=== PATIENT | female | born 1965 | race Caucasian/White ===

== ENCOUNTER 2022-04-20 05:38 | Day surgery (SDC) | payer BC ==
[~2022-04-20] VITALS: Ht 167.6 cm; Wt 79.6 kg
--- NOTE | 2022-04-20 12:31 | NUR ---
04/20/22 Farida1 Eleni Zuniga 1224-PATIENT ARRIVED TO PACU ON 6L MASK NONAROUSABLE ORAL AIRWAY IN PLACE RR EVEN. IVF INFUSING. SR. LAP SITES TO ABDOMEN CDI ICE APPLIED. 1226-PATIENT AROUSING TO VERBAL STIMULI ORAL AIRWAY REMOVED. MOVING HANDS. ORIENTED TO PACU. PATIENT EASILY DOZES BACK TO SLEEP. 6L MASK RR EVEN
--- NOTE | 2022-04-20 12:35 | CONS ---
[facility] [address], [place] [address] Signed DATE OF CONSULTATION: 04/20/2022 CHIEF COMPLAINT: Right upper quadrant abdominal pain. HISTORY OF PRESENT ILLNESS: Sue is a 57-year-old female, who has had some sense of right upper quadrant pain for at least a year. She has had a couple of really bad attacks. One started yesterday that radiated through to her back. She had nausea and vomiting. She came to the emergency room for evaluation. Her white count was a little elevated, but her liver function tests were fine. COVID was negative. Beta-hCG negative. CT scan was done and she had some gallbladder wall thickening and edema of about 8 mm. There appears to be a small stone in the gallbladder. Common bile duct is unremarkable. I have been asked to see her as a general surgeon on-call. In the meantime, she has received Rocephin and Flagyl. PAST MEDICAL HISTORY: None. PAST SURGICAL HISTORY: . SOCIAL HISTORY: She quit smoking 10 years ago. She likes a couple of beers every evening. She is now single and has a son Ortega at [phone] and her mother is Leonarda at [phone]. 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 She does drive. She prefers the [facility] pharmacy. Dr. Esqueda is her primary care provider. FAMILY HISTORY: Dad had a stroke and [place] and CABG. REVIEW OF SYSTEMS: She had 10 systems reviewed and there were no new findings. ALLERGIES: None. MEDICATIONS: None. PHYSICAL EXAMINATION: VITAL SIGNS: Her blood pressure is 153/84, heart rate is 85, respiratory rate is 19, temperature is 98.2. She is 99% on room air. She is 5 feet 6 inches tall at 79 kg with Electronically Signed By: ARTIE VAZQUEZ MD 04/20/22 1235 PATIENT NAME: SUE RHODES CONSULTATION DATE OF : 69 REPORT #: [id number] PHYSICIAN: ARTIE VAZQUEZ MD PCP: PARESH ESQUEDA DO REPORT IS CONFIDENTIAL AND NOT TO BE RELEASED WITHOUT AUTHORIZATION [facility] [address], [place] [address] Signed a body mass index of 28. GENERAL: Sue is a 57-year-old female lying supine semi-recumbent in her ER bed. She does not appear systemically ill or toxic. She is not jaundiced. LUNGS: Clear to auscultation bilaterally. HEART: Regular rate and rhythm without murmurs. ABDOMEN: Obese, but soft, although tender in the right upper quadrant. LABORATORY DATA: Her white blood cell count is 13.5, hemoglobin 13. Electrolytes are unremarkable. UA is negative. COVID is negative. Total bilirubin is 1.0, AST 18, ALT 31, alkaline phosphatase is 73. The lipase is 102. The beta HCG is negative. RADIOGRAPHIC STUDIES: CT scan of the abdomen and pelvis is reviewed and she does have gallbladder wall thickening and edema and a small stone but unremarkable common bile duct. ASSESSMENT AND PLAN: Sue is a 57-year-old female who presents with cholecystitis and cholelithiasis. She has been given IV fluids and antibiotics and pain control. We are going to be taking her over to the operating room here shortly. I have reviewed the above findings with her in detail. We have reviewed the location and function of the gallbladder. We have reviewed laparoscopic versus open cholecystectomy. I reviewed the expected intraop and postop course. There is risk to surgery including, but not limited to bleeding, infection, scarring, change in contour of the skin, damage to bowel, damage to main bile duct, incisional hernias and other unforeseen comorbidities. She has expressed understanding and would like to proceed. Artie Vazquez MD ALB/MODL /[id number] cc: MD Paresh Nathan DO Copies: ARTIE VAZQUEZ MD Electronically Signed By: ARTIE VAZQUEZ MD 04/20/22 1235 PATIENT NAME: SUE RHODES CONSULTATION DATE OF : 69 REPORT #: [id number] PHYSICIAN: ARTIE VAZQUEZ MD PCP: PARESH ESQUEDA DO REPORT IS CONFIDENTIAL AND NOT TO BE RELEASED WITHOUT AUTHORIZATION [address] [place] [address] Signed PARESH ESQUEDA DO ~ Electronically Signed By: ARTIE VAZQUEZ MD 04/20/22 1235 PATIENT NAME: SUE RHODES CONSULTATION DATE OF : 69 REPORT #: [id number] PHYSICIAN: ARTIE VAZQUEZ MD PCP: PARESH ESQUEDA DO REPORT IS CONFIDENTIAL AND NOT TO BE RELEASED WITHOUT AUTHORIZATION
--- NOTE | 2022-04-20 13:15 | NUR ---
PT TRANSPORTED TO DAY SURGERY VIA STRETCHER. PT AWAKE AND ORIENTED BUT DROWSY. PT REPORTS PAIN 6/10 IN STOMACH AND "TINY BIT" OF NAUSEA. PT'S MOTHER AT BEDSIDE. ICE PACK ON PT'S ABDOMEN. CALL LIGHT WITHIN REACH. ICE WATER AT BEDSIDE.
--- NOTE | 2022-04-20 13:29 | NUR ---
JELLO-O AND CRACKERS AT BEDSIDE. CALL LIGHT WITHIN REACH. PT INFORMED TO CALL NURSES IF NAUSEOUS.
--- NOTE | 2022-04-20 13:52 | NUR ---
PT GIVEN WARM BLANKET AND MORE CRACKERS. CALL LIGHT WITHIN REACH.
--- NOTE | 2022-04-20 14:02 | NUR ---
PT MAINTAINING 100% O2 LEVELS ON 2 L VIA NC. PT O2 TURNED OFF AND PUT ON RA. PT MAINTAINING O2 LEVELS ABOVE 96%. PT WEARING O2 PROBE ON RIGHT FINGER. PT STATES PAIN IS STILL 6/10 AFTER RECEIVING PO PAIN MEDS. PT COUGHING AND DEEP BREATHING. PT EATING CRACKERS AND JELLO-O. WATER AT BEDSIDE. CALL LIGHT WITHIN REACH.
--- NOTE | 2022-04-20 15:15 | NUR ---
WALKED PT DOWN LONG HALLWAY. DID WELL.
--- NOTE | 2022-04-20 16:53 | NUR ---
1545 STATES MOTHER HERE AND READY TO GO HOME.
--- NOTE | 2022-04-21 06:59 | OR ---
[facility] [address], [place] [address] Signed DATE OF OPERATION: 04/20/2022 SURGEON: Artie Vazquez MD PREOPERATIVE DIAGNOSIS: Acute on chronic cholecystitis and cholelithiasis. POSTOPERATIVE DIAGNOSIS: Acute on chronic cholecystitis and cholelithiasis. PROCEDURE: Laparoscopic cholecystectomy with intraoperative cholangiogram. ESTIMATED BLOOD LOSS: None. FINDINGS: Sue indeed had a thickened, edematous, distended gallbladder with two stones in the gallbladder. One stone was in the neck. The bile was basically clear mucus. The intraoperative cholangiogram was unremarkable. INDICATIONS: Sue is a 57-year-old female who for at least a year has been having some right upper quadrant abdominal pain. She had at least two attacks where they were severe and went right through to her back. She had one yesterday with nausea and vomiting associated with it as well. She came to the emergency room for evaluation. White count was up a little bit, but the liver function tests were fine. COVID was negative and her beta-hCG was negative. CT scan confirmed a thickened edematous gallbladder wall about 8 mm. There appeared to be a small stone present. Common bile duct was unremarkable. I was asked to see her in the emergency room as a general surgeon on-call. In the meantime, she received Rocephin, and Flagyl and IV pain medication. She was still a little tender in the right upper quadrant. I reviewed with her the above findings. We reviewed the location and function of the gallbladder. We reviewed laparoscopic versus open cholecystectomy. She understands there is risk including, but not limited to bleeding, infection, scarring, change in contour of the skin, damage to bowel, damage to main bile duct, incisional hernias and other unforeseen comorbidities. She understands expected intraop and postop course. 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 She had expressed understanding and wished to proceed. Electronically Signed By: ARTIE VAZQUEZ MD 04/21/22 0659 PATIENT NAME: SUE RHODES OPERATIVE REPORT DATE OF : 69 REPORT #: [id number] PHYSICIAN: ARTIE VAZQUEZ MD PCP: PARESH ESQUEDA DO REPORT IS CONFIDENTIAL AND NOT TO BE RELEASED WITHOUT AUTHORIZATION [facility] [address] [place] [id number] Signed PROCEDURE NOTE: Sue was taken directly from the ER over to the operating room. She was placed under general endotracheal tube anesthesia. She was already on preoperative antibiotics and I gave her subcutaneous Lovenox. SCDs were utilized. She was prepped and draped in the usual sterile fashion. All trocars were placed in their usual positions under direct visualization of the camera without difficulty. The gallbladder was so distended and firm that we could not grasp the gallbladder. We therefore cauterized a small hole in the top of the gallbladder and suctioned out the clear mucoid bilious fluid. We then were able to grab the gallbladder and elevate it in the right upper quadrant. We took down the adhesions down around the triangle of [place] and the neck of the gallbladder. Most of this was with blunt dissection. We isolated the cystic duct and the cystic artery. The cystic artery was clipped and divided. We passed our intraoperative cholangiocatheter into the cystic duct. The intraoperative cholangiogram was found to be unremarkable. We secured the cystic duct stump with a PDS Endoloop and two clips were placed across the cystic duct stump to kaylee its location. After this, the gallbladder was removed from the gallbladder fossa with the help of the cautery and placed into an EndoCatch bag. The right upper quadrant was irrigated and suctioned out until clear. We used our laparoscopic suturing device to pass 0-Vicryl suture on either side of the fascia of the subxiphoid trocar site. This was tied down to close this fascia primarily. After this, the gas was allowed to escape and all the remaining trocars were removed. The gallbladder was removed and passed off to our circulating nurse for photodocumentation. We closed the fascia of the supraumbilical trocar site with interrupted [id number] 0 Vicryl sutures. Local anesthetic was injected in the abdominal wall along with the subcutaneous tissues of all trocar sites. Each trocar site was irrigated and suctioned out until clear. The skin and dermis of each trocar site was closed with interrupted 3-0 subcuticular Monocryl sutures. Dry gauze and tape was applied to all incisions. Sue was awakened from her anesthesia, extubated in the OR, and taken to the recovery room in stable condition. Artie Vazquez MD ALB/MODL /[id number] cc: Paresh Esqueda DO Electronically Signed By: ARTIE VAZQUEZ MD 04/21/22 0659 PATIENT NAME: SUE RHODES OPERATIVE REPORT DATE OF : 69 REPORT #: [id number] PHYSICIAN: ARTIE VAZQUEZ MD PCP: PARESH ESQUEDA DO REPORT IS CONFIDENTIAL AND NOT TO BE RELEASED WITHOUT AUTHORIZATION [address] [place], [place] [address] Signed Artie Vazquez MD Copies: PARESH ESQUEDA ANDREW L MD ~ Electronically Signed By: ARTIE VAZQUEZ MD 04/21/22 0659 PATIENT NAME: SUE RHODES OPERATIVE REPORT DATE OF : 69 REPORT #: [id number] PHYSICIAN: ARTIE VAZQUEZ MD PCP: PARESH ESQUEDA DO REPORT IS CONFIDENTIAL AND NOT TO BE RELEASED WITHOUT AUTHORIZATION
--- NOTE | 2022-04-22 06:50 | EKG ---
[facility] [address] [facility] [place], [place] [address] Signed Normal sinus rhythm Left axis deviation Abnormal ECG No previous ECGs available Confirmed by DENISE JIMENEZ MD ([id number]) on 04/22/2022 6:50:05 AM Electronically Signed By: DENISE JIMENEZ MD 04/22/22 0650 PATIENT NAME: ESAU RHODES Electrocardiogram DATE OF : 69 PHYSICIAN: DENISE JIMENEZ MD REPORT #: [id number] REPORT IS CONFIDENTIAL AND NOT TO BE RELEASED WITHOUT AUTHORIZATION
--- NOTE | 2022-04-26 11:40 | PATH ---
[facility] [address], [place] [address] Signed SPECIMEN(S): A GALLBLADDER SPECIMEN SOURCE: A. GALLBLADDER CLINICAL HISTORY: Cholelithiasis, acute cholecystitis. FINAL PATHOLOGIC DIAGNOSIS: Gallbladder, cholecystectomy: - Acute and chronic calculous cholecystitis. JVR:jessa:C2NR MICROSCOPIC EXAMINATION: Histologic sections of all submitted blocks are examined by light microscopy. These findings, together with the gross examination, support the pathologic diagnosis. GROSS DESCRIPTION: The specimen, labeled "DH, gallbladder," is received in formalin and consists of Specimen: Previously opened gallbladder. Dimensions: 11 cm in length and 6.3 cm in inner circumference. Serosa: Violaceous and smooth. Cystic Duct: Unobstructed. Calculi: Two yellow-green gallstones within the container that measure 0.7 and 1.8 cm in diameter. Mucosa: [place]-red and velvety. Wall thickness: 0.4 cm. Lymph node: No pericystic lymph nodes are grossly identified. Additional: None. Home Theater Experience Expert sections are submitted in cassette (A1). JS (under the direct supervision of a pathologist) The Gross Description was prepared using a voice recognition system. The report was reviewed for accuracy; however, sound-alike word errors, addition and/or deletions may occur. If there is any question about this report, please contact Client Services. PERFORMING LABORATORY: The technical component was performed by [facility], [address] [place] [id number] (CLIA# [id number]). Professional interpretation was PATIENT NAME: ESAU RHODES PATHOLOGY DATE OF : 69 REPORT #: [id number] PHYSICIAN: [facility] PCP: TATYANA ESQUEDA DO REPORT IS CONFIDENTIAL AND NOT TO BE RELEASED WITHOUT AUTHORIZATION [address] [place], [place] [address] Signed performed by [facility] [address] [address] (CLIA#: [id number]). Diagnostician: Sascha Fine MD Pathologist Electronically Signed 04/26/2022 Copies: ~ PATIENT NAME: ESAU RHODES PATHOLOGY DATE OF : 69 REPORT #: [id number] PHYSICIAN: [facility] PCP: TATYANA ESQUEDA DO REPORT IS CONFIDENTIAL AND NOT TO BE RELEASED WITHOUT AUTHORIZATION
== END 2022-04-20 15:45 | disposition home or self-care (01) ==
LOC: ED 05:38 → DS 08:24
PROVIDERS: ATTEND Colon & Rectal Surgery
PROC: 0FT44ZZ Resection of Gallbladder, Percutaneous Endoscopic Approach (ICD-10-PCS; principal; 2022-04-20 10:30)
DX: K80.12 Calculus of gallbladder with acute and chronic cholecystitis without obstruction (principal); Z87.891 Personal history of nicotine dependence; Z20.822 Contact with and (suspected) exposure to COVID-19
CPT/HCPCS: 36415; 74177; 74300; 80053; 81003; 83690; 84703; 85025; 93005; 93010; 96361; 96374; 96375; 99285-25; J0696; J1100; J1170; J1650; J1885; J2001; J2270; J2405; J2704; J7121; Q9967; U0003